=== PATIENT | female | born 2000 | race Caucasian/White ===

== ENCOUNTER → 2019-11-01 15:58 | Outpatient (CLI) | payer BC, SELFPAY ==
[2019-11-01 20:27] LABS: Chlamydia Trachomatis by PCR Negative (Negative); Neisserai gonorrhoeae by PCR Negative (Negative); Probe Check PASS; Sample Adequacy Control PASS; Specimen Processing Control PASS
== END ==
PROVIDERS: Visit Provider Obstetrics & Gynecology
DX: Z11.3 Encounter for screening for infections with a predominantly sexual mode of transmission (principal)
CPT/HCPCS: 87491; 87591

== ENCOUNTER → 2020-11-13 10:40 | Outpatient (CLI) | payer BC, SELFPAY ==
[2020-11-18 06:07] LABS: Chlamydia By Nucleic Acid AMP Negative (Negative)
[2020-11-18 12:20] LABS: Gonococcus By Nucleic Acid AMP Negative (Negative)
[2020-11-18 17:04] LABS: HPV Reflexed? NOT INDICATED
== END ==
PROVIDERS: Visit Provider Obstetrics & Gynecology
DX: Z11.3 Encounter for screening for infections with a predominantly sexual mode of transmission (principal); Z12.4 Encounter for screening for malignant neoplasm of cervix
CPT/HCPCS: 87491; 87591; 88175; G0145

== ENCOUNTER 2021-12-03 10:35 | Outpatient (CLI) | payer BC, SELFPAY ==
[2021-12-06 22:06] LABS: Chlamydia By Nucleic Acid AMP Negative (Negative)
[2021-12-08 14:13] LABS: Gonococcus By Nucleic Acid AMP Negative (Negative)
== END 2021-12-03 23:59 | disposition home or self-care (01) ==
LOC: LABSPEC 10:36
PROVIDERS: Visit Provider Obstetrics & Gynecology
DX: Z11.3 Encounter for screening for infections with a predominantly sexual mode of transmission (principal)
CPT/HCPCS: 87491; 87591